=== PATIENT | male | born 1945 | race Caucasian/White ===

== ENCOUNTER → 2018-02-03 | Outpatient (CLI) | payer MEDICARE, OTHER ==
--- NOTE | 2018-02-03 12:49 | CT ---
EXAMINATION TYPE: CT abdomen wo/w con DATE OF EXAM: 02/03/2018 COMPARISON: None HISTORY: LT RENAL MASS CT DLP: 1947 mGycm CONTRAST: CT scan of the abdomen is performed with Oral Contrast and without and with IV Contrast, patient in jected with 100 mL of Isovue 300. FINDINGS: LUNG BASES-: No visible nodule. No infiltrate. LIVER/GB: No calcified gallstones. No space occupying hepatic lesion. Biliary tree is of normal ca liber. PANCREAS: No inflammation. No distinct mass. SPLEEN: No splenic enlargement. No lesion seen. ADRENALS: No nodule. No thickening. KIDNEYS/BLADDER: There is a large enhancing exophytic mass arising from the lower pole of the left w hich measures 8.2 x 8.0 x 7.1 cm compatible with renal cell carcinoma until proven otherwise. Promine nt adjacent vasculature. No additional mass is identified. No hydronephrosis. No nephrolithiasis. BOWEL: Normal appendix. Normal bowel caliber. No inflammation. GENITAL ORGANS: No gross abnormality. LYMPH NODES: No greater than 1cm abdominal or pelvic lymph nodes are appreciated. AORTA: No significant abnormality. OSSEOUS STRUCTURES: No significant abnormality is seen. OTHER: No significant additional abnormality is seen. IMPRESSION: 1. Exophytic left renal mass at its lower pole compatible with renal cell carcinoma until proven othe rwise.
== END | disposition home or self-care (01) ==
LOC: RADCTMAIN 11:20
PROVIDERS: ATTEND Physician Assistant
DX: R19.06 Epigastric swelling, mass or lump (principal)
CPT/HCPCS: 74170; Q9967

== ENCOUNTER → 2023-01-12 | Outpatient (CLI) | payer MEDICARE, OTHER ==
--- NOTE | 2023-01-12 20:43 | CT ---
EXAMINATION TYPE: HRCT chest wo con DATE OF EXAM: 01/12/2023 COMPARISON: Radiograph 12/28/2022 HISTORY: 77-year-old male R05.3 chronic cough, cough x 3 weeks TECHNIQUE: High resolution CT chest utilizing 1 mm slice thickness and [address] protocol. No IV contrast. Both prone and supine imaging is performed. Excretory phase imaging also performed. CT DLP: 1717.3mGycm. Automatic exposure control utilized for a dose reduction. FINDINGS: The heart is normal size with trace anterior basilar pericardial fluid measuring 1.1 cm thick. Left a nterior chest wall pacemaker generator with right atrial, right ventricular, and coronary sinus leads . LAD and circumflex coronary calcifications are noted. Minimal atherosclerotic arch calcifications. The metatarsals of branching anatomy. Ectatic upper desc ending thoracic aorta 3.4 cm. Mildly enlarged caliber to the main right and left pulmonary arteries measuring up to 2.7 cm may refl ect underlying pulmonary hypertension. There is bilateral gynecomastia. No thoracic lymphadenopathy by CT size criteria. There is mild diffuse bronchial wall thickening present. No consolidation or pleural effusion. There are mild subpleural reticular densities in the lower lungs. No mosaic attenuation, dominant groundgla ss change, centrilobular nodularity, tree-in-bud opacities, thickening of the bronchovascular bundles , ankle swelling, or perilymphatic nodularity. Mild biapical pleural parenchymal scarring. No bronchi ectasis. There is a 5 mm medial left upper lobe pulmonary nodule, axial image 108 which should be reassessed a t follow-up. Visualized upper abdomen shows an incidental 2.7 cm gastric fundal diverticulum. Mild degenerative disc disease mid to lower thoracic spine. IMPRESSION: 1. HRCT showing very mild early interstitial fibrosis in the lower lungs. Findings are nonspecific. No dominant groundglass or honeycombing is seen. 2. There may be underlying pulmonary hypertension. 3. Recommend 6 month follow-up CT chest to reassess a 5 mm medial left upper lobe pulmonary nodule.
== END | disposition home or self-care (01) ==
LOC: RADCTMAIN 13:52
PROVIDERS: ATTEND Internal Medicine Critical Care Medicine
DX: J84.10 Pulmonary fibrosis, unspecified (principal)
CPT/HCPCS: 71250

== ENCOUNTER → 2023-08-09 | Outpatient (CLI) | payer MEDICARE, OTHER ==
--- NOTE | 2023-08-09 11:35 | CT ---
EXAMINATION TYPE: CT chest wo con DATE OF EXAM: 08/09/2023 COMPARISON: 01/12/2023 HISTORY: interstitial disease, congestion CT DLP: 1752.00 mGycm High-resolution noncontrast CT of the chest was performed with the patient in the prone and supine po sitions. Lung and mediastinal window settings are submitted. The lungs appear to be well-aerated. Again noted is stable mild early subpleural fibrosis at the lung bases. There is mild lower lobe bronchiectasis. No evidence for honeycombing. Mild left basilar pleu ral thickening. No evidence for mass or groundglass infiltrate. No pleural effusion is identified. I do not see evidence for hilar or mediastinal mass or adenopathy. IMPRESSION: 1. Stable features of mild early subpleural fibrosis at the lung bases. No evidence for groundglass a ppearance. Mild lower lobe bronchiectasis.
== END | disposition home or self-care (01) ==
LOC: RADCTMAIN 10:53
PROVIDERS: ATTEND Internal Medicine Critical Care Medicine
DX: J84.10 Pulmonary fibrosis, unspecified (principal); J47.9 Bronchiectasis, uncomplicated; J84.9 Interstitial pulmonary disease, unspecified
CPT/HCPCS: 71250